=== PATIENT | female | born 1975 | race Caucasian/White ===

== ENCOUNTER → 2016-07-15 | Outpatient (CLI) | payer OTHER, MEDICAID ==
[~2016-07-15] MED LIST: AMBIEN 10MG10 MG PO; BACTRIM DS 8001 TAB PO; CLARITIN 1010 MG/TAB PO; CLEOCIN HC150 MG/CAP PO; DEPO-PROVER150 MG/M1 IM; FLEXERIL 1010 MG/TAB PO; FLEXERIL10 MG PO; INDERAL 20MG20 MG PO; INDERAL LA 80MG80 MG PO; KEPPRA 500MG500 MG PO; LORTAB 5/500 501 TAB PO; LOTENSIN 1010 MG/TAB PO; LOTENSIN20 MG PO; MOTRIN 800800 MG/TAB PO; MOTRIN800 MG PO; NEURONTIN300 MG/CAP PO; NO HOME MEDICATIONS; NORCO 325 MG-51 TAB PO; PENICILLIN250 MG PO; PERCOCET 325 MG1 TA2; PERCOCET 325 MG1 TA2 PO; PERCOCET 325 MG1 TA3 PO; PERCOCET 5/321 UDTAB PO; PREDNISONE20 MG PO; RITALIN10 MG PO; TRAMADOL50 MG PO; TREXIMET 10-601 EACH PO; TREXIMET 500 MG1 TAB PO; ULTRAM 50MG TAB50 MG; ULTRAM 50MG TAB50 MG PO; ULTRAM100 MG PO; VICODIN 5/5001 UDTAB PO; ZOFRAN 4MG T4 MG/TAB PO
== END ==
LOC: BHSO 13:00
DX: F41.1 Generalized anxiety disorder (principal)

== ENCOUNTER → 2016-07-22 | Outpatient (CLI) | payer OTHER, MEDICAID | LOC: BHSO 12:54 | DX: F40.10 Social phobia, unspecified (principal) ==

== ENCOUNTER → 2016-07-29 | Outpatient (CLI) | payer OTHER, MEDICAID | LOC: BHSO 13:04 | DX: F40.10 Social phobia, unspecified (principal) ==

== ENCOUNTER → 2016-08-05 | Outpatient (CLI) | payer OTHER, MEDICAID | LOC: BHSO 13:01 | DX: F41.1 Generalized anxiety disorder (principal) ==

== ENCOUNTER → 2016-08-12 | Outpatient (CLI) | payer OTHER, MEDICAID | LOC: BHSO 13:00 | DX: F41.1 Generalized anxiety disorder (principal) ==

== ENCOUNTER 2016-08-22 13:36 | Emergency (ER) | payer OTHER, MEDICAID ==
[~2016-08-22] VITALS: Ht 177.8 cm; Wt 100.0 kg
[~2016-08-22 13:36] MED LIST changes: -AMBIEN 10MG10 MG PO; -BACTRIM DS 8001 TAB PO; -CLARITIN 1010 MG/TAB PO; -FLEXERIL 1010 MG/TAB PO; -INDERAL LA 80MG80 MG PO; -LOTENSIN 1010 MG/TAB PO; -RITALIN10 MG PO; -TREXIMET 10-601 EACH PO
[2016-08-22 13:41] VITALS: TEMP 98.3
[2016-08-22 15:12] LABS: BASO % 0.3 % (0.0-2.0); EOS # 0.2 (0.0-0.7); EOS % 3.5 % (0-4.0); GRAN # 3.5 (1.4-6.5); GRAN % 59.6 % (42.2-75.2); HEMATOCRIT 35.6 % (37.0-47.0); HEMOGLOBIN 11.9 g/dl (12.5-16.0); LYMPH # 1.8 (1.2-3.4); LYMPH % 30.7 % (20.0-51.0); MEAN CELL VOLUME 83 fl (80.0-100.0); MEAN CORPUSCULAR HEMOGLOBIN 28 pg (27.0-31.0); MEAN CORPUSCULAR HGB CONC 33 g/dl (33.0-37.0); MEAN PLATELET VOLUME 8.9 fl (7.4-10.4); MONO # 0.3 (0.1-0.6); MONO % 5.7 % (1.7-9.3); PLATELET COUNT 173 K/mm3 (130-400); REDCELL DISTRIBUTION WIDTH-CV 13.6 % (11.5-14.5); WHITE BLOOD COUNT 5.8 K/mm3 (4.8-10.8)
[2016-08-22 15:19] LABS: INR 1.1 (0.8-3.0); PROTHROMBIN TIME 11.9 SECONDS (9.7-12.8)
[2016-08-22 15:31] LABS: ADJUSTED CALCIUM 9.6 mg/dL (8.4-10.2); ALANINE AMINOTRANSFERASE 30 U/L (9-52); ALBUMIN 3.8 gm/dL (3.5-5.0); ALKALINE PHOSPHATASE 60 U/L (50-136); ANION GAP 10 mmol/L (7-16); BILIRUBIN,TOTAL 0.7 mg/dL (0.0-1.0); BLOOD UREA NITROGEN 18 mg/dL (7-17); CALCIUM 9.4 mg/dL (8.4-10.2); CARBON DIOXIDE 24 mmol/L (22-30); CHLORIDE 107 mmol/L (98-107); CREATININE, serum 0.94 mg/dL (0.52-1.25); GLUCOSE 91 mg/dL (74-106); POTASSIUM 3.9 mmol/L (3.4-5.0); SODIUM 140 mmol/L (137-145); TOTAL PROTEIN 7.1 gm/dL (6.4-8.2)
[2016-08-22 15:40] LABS: C-REACTIVE PROTEIN < 0.5 mg/dL (0.0-0.9); TROPONIN-I < 0.012 ng/mL (0.000-0.034)
[2016-08-22 16:29] VITALS: BP 124/86; PULSE 87
== END 2016-08-22 16:37 | disposition home or self-care (01) ==
LOC: COL.ER 13:36
PROVIDERS: Family Medicine
DX: R07.89 Other chest pain (principal)

== ENCOUNTER → 2016-08-26 | Outpatient (CLI) | payer OTHER, MEDICAID ==
[~2016-08-26] MED LIST changes: +AMBIEN 10MG10 MG PO; +BACTRIM DS 8001 TAB PO; +CLARITIN 1010 MG/TAB PO; +FLEXERIL 1010 MG/TAB PO; +INDERAL LA 80MG80 MG PO; +LOTENSIN 1010 MG/TAB PO; +RITALIN10 MG PO; +TREXIMET 10-601 EACH PO
== END ==
LOC: BHSO 11:05
DX: F41.1 Generalized anxiety disorder (principal)

== ENCOUNTER → 2016-09-16 | Outpatient (CLI) | payer OTHER, MEDICAID | LOC: BHSO 13:06 | DX: F41.1 Generalized anxiety disorder (principal) ==

== ENCOUNTER 2016-09-22 14:02 | Emergency (ER) | payer OTHER, MEDICAID ==
[~2016-09-22] VITALS: Ht 177.8 cm; Wt 90.9 kg
[~2016-09-22 14:02] MED LIST changes: -AMBIEN 10MG10 MG PO; -BACTRIM DS 8001 TAB PO; -CLARITIN 1010 MG/TAB PO; -FLEXERIL 1010 MG/TAB PO; -INDERAL LA 80MG80 MG PO; -LOTENSIN 1010 MG/TAB PO; -RITALIN10 MG PO; -TREXIMET 10-601 EACH PO
[2016-09-22 14:04] VITALS: PULSE 99; TEMP 99.1
[2016-09-22] MEDS ORDERED: AMBIEN 10MG10 MG PO (14:08)
[2016-09-22 15:08] LABS: BASO % 0.2 % (0.0-2.0); EOS # 0.2 (0.0-0.7); EOS % 2.8 % (0-4.0); GRAN # 3.5 (1.4-6.5); GRAN % 61.6 % (42.2-75.2); HEMATOCRIT 35.4 % (37.0-47.0); HEMOGLOBIN 12.1 g/dl (12.5-16.0); LYMPH # 1.7 (1.2-3.4); LYMPH % 29.6 % (20.0-51.0); MEAN CELL VOLUME 82 fl (80.0-100.0); MEAN CORPUSCULAR HEMOGLOBIN 28 pg (27.0-31.0); MEAN CORPUSCULAR HGB CONC 34 g/dl (33.0-37.0); MONO # 0.3 (0.1-0.6); MONO % 5.6 % (1.7-9.3); PLATELET COUNT 169 K/mm3 (130-400); RED BLOOD COUNT 4.34 M/mm3 (4.10-5.30); WHITE BLOOD COUNT 5.7 K/mm3 (4.8-10.8)
[2016-09-22 15:20] LABS: ADJUSTED CALCIUM 9.3 mg/dL (8.4-10.2); ALBUMIN 3.5 gm/dL (3.5-5.0); BILIRUBIN,TOTAL 0.7 mg/dL (0.0-1.0); CALCIUM 8.9 mg/dL (8.4-10.2); CREATININE, serum 0.81 mg/dL (0.52-1.25); POTASSIUM 3.7 mmol/L (3.4-5.0); TOTAL PROTEIN 6.9 gm/dL (6.4-8.2)
[2016-09-22 15:51] LABS: PH 5 (5-8); URINE APPEARANCE Cloudy; URINE BACTERIA None Seen /hpf; URINE BILIRUBIN Negative (NEGATIVE); URINE BLOOD Negative (NEGATIVE); URINE COLOR Amber; URINE GLUCOSE Negative (NEGATIVE); URINE KETONE Negative (NEGATIVE); URINE RBC 20-50 /hpf; URINE UROBILINOGEN Negative (NEGATIVE); URINE WBC >50 /hpf
[2016-09-22] MEDS ORDERED: BACTRIM DS 8001 TAB PO (15:58)
[2016-09-22 16:27] VITALS: BP 145/96
== END 2016-09-22 16:55 | disposition home or self-care (01) ==
LOC: COL.ER 14:02
PROVIDERS: Family Medicine
DX: N39.0 Urinary tract infection, site not specified (principal); B96.1 Klebsiella pneumoniae [K. pneumoniae] as the cause of diseases classified elsewhere; I10 Essential (primary) hypertension; R19.7 Diarrhea, unspecified
CPT/HCPCS: J0696; J2405; J7030

== ENCOUNTER → 2016-09-23 | Outpatient (CLI) | payer OTHER, MEDICAID ==
[~2016-09-23] MED LIST changes: +AMBIEN 10MG10 MG PO; +BACTRIM DS 8001 TAB PO; +CLARITIN 1010 MG/TAB PO; +FLEXERIL 1010 MG/TAB PO; +INDERAL LA 80MG80 MG PO; +LOTENSIN 1010 MG/TAB PO; +RITALIN10 MG PO; +TREXIMET 10-601 EACH PO
== END ==
LOC: BHSO 10:06
DX: F41.1 Generalized anxiety disorder (principal)

== ENCOUNTER → 2016-10-07 | Outpatient (CLI) | payer OTHER, MEDICAID | LOC: BHSO 13:03 | DX: F40.10 Social phobia, unspecified (principal) ==

== ENCOUNTER 2016-10-09 16:44 | Emergency (ER) | payer OTHER, MEDICAID ==
[~2016-10-09] VITALS: Ht 177.8 cm; Wt 90.9 kg
[~2016-10-09 16:44] MED LIST changes: -CLARITIN 1010 MG/TAB PO; -FLEXERIL 1010 MG/TAB PO; -INDERAL LA 80MG80 MG PO; -LOTENSIN 1010 MG/TAB PO; -RITALIN10 MG PO; -TREXIMET 10-601 EACH PO
[2016-10-09 16:52] VITALS: TEMP 98.8
[2016-10-09] MEDS ORDERED: FLEXERIL 1010 MG/TAB PO (17:39)
[2016-10-09 17:52] VITALS: BP 126/64; PULSE 84
== END 2016-10-09 17:52 | disposition home or self-care (01) ==
LOC: COL.ER 16:44
DX: S29.012A Strain of muscle and tendon of back wall of thorax, initial encounter (principal); X50.0XXA Overexertion from strenuous movement or load, initial encounter; Y93.E6 Activity, residential relocation

== ENCOUNTER → 2016-10-14 | Outpatient (CLI) | payer OTHER, MEDICAID ==
[~2016-10-14] MED LIST changes: +CLARITIN 1010 MG/TAB PO; +FLEXERIL 1010 MG/TAB PO; +INDERAL LA 80MG80 MG PO; +LOTENSIN 1010 MG/TAB PO; +RITALIN10 MG PO; +TREXIMET 10-601 EACH PO
== END ==
LOC: BHSO 11:05
DX: F41.1 Generalized anxiety disorder (principal)

== ENCOUNTER → 2016-10-21 | Outpatient (CLI) | payer OTHER, MEDICAID | LOC: BHSO 10:08 | DX: F40.10 Social phobia, unspecified (principal) ==

== ENCOUNTER → 2016-10-28 | Outpatient (CLI) | payer OTHER, MEDICAID | LOC: BHSO 09:03 | DX: F40.10 Social phobia, unspecified (principal) ==

== ENCOUNTER → 2016-11-24 | Outpatient (CLI) | payer OTHER, MEDICAID | LOC: BHSO 16:01 | DX: F40.10 Social phobia, unspecified (principal) ==

== ENCOUNTER → 2016-12-06 | Outpatient (CLI) | payer OTHER, MEDICAID | LOC: BHSO 15:59 | DX: F41.1 Generalized anxiety disorder (principal) ==

== ENCOUNTER → 2016-12-27 | Outpatient (CLI) | payer OTHER, MEDICAID | LOC: BHSO 16:07 | DX: F40.10 Social phobia, unspecified (principal) ==

== ENCOUNTER → 2017-01-18 | Outpatient (CLI) | payer OTHER, MEDICAID | LOC: BHSO 16:05 | DX: F40.10 Social phobia, unspecified (principal) ==

== ENCOUNTER 2017-02-27 22:15 | Emergency (ER) | payer OTHER, MEDICAID ==
[~2017-02-27] VITALS: Ht 177.8 cm; Wt 90.9 kg
[~2017-02-27 22:15] MED LIST changes: -CLARITIN 1010 MG/TAB PO; -INDERAL LA 80MG80 MG PO; -LOTENSIN 1010 MG/TAB PO; -RITALIN10 MG PO; -TREXIMET 10-601 EACH PO
[2017-02-27 22:26] VITALS: TEMP 99.2
[2017-02-27] MEDS ORDERED: LOTENSIN 1010 MG/TAB PO (22:33)
[2017-02-27] MEDS ORDERED: INDERAL LA 80MG80 MG PO (22:33)
[2017-02-27] MEDS ORDERED: AMBIEN 10MG10 MG PO (22:33)
[2017-02-27] MEDS ORDERED: CLARITIN 1010 MG/TAB PO (22:34)
[2017-02-27] MEDS ORDERED: RITALIN10 MG PO (22:35)
[2017-02-27] MEDS ORDERED: TREXIMET 10-601 EACH PO (22:36)
[2017-02-27 23:33] LABS: BASO % 0.5 % (0.0-2.0); EOS # 0.6 (0.0-0.7); EOS % 7.3 % (0-4.0); GRAN # 4.6 (1.4-6.5); GRAN % 58.6 % (42.2-75.2); HEMATOCRIT 37.3 % (37.0-47.0); HEMOGLOBIN 13.1 g/dl (12.5-16.0); LYMPH % 26.2 % (20.0-51.0); MEAN CELL VOLUME 80 fl (80.0-100.0); MEAN CORPUSCULAR HEMOGLOBIN 28 pg (27.0-31.0); MEAN CORPUSCULAR HGB CONC 35 g/dl (33.0-37.0); MEAN PLATELET VOLUME 8.8 fl (7.4-10.4); MONO # 0.6 (0.1-0.6); MONO % 7.1 % (1.7-9.3); PLATELET COUNT 259 K/mm3 (130-400); RED BLOOD COUNT 4.69 M/mm3 (4.10-5.30); REDCELL DISTRIBUTION WIDTH-CV 13.6 % (11.5-14.5); WHITE BLOOD COUNT 7.8 K/mm3 (4.8-10.8)
[2017-02-27 23:40] VITALS: BP 125/82
[2017-02-27 23:43] LABS: ADJUSTED CALCIUM 9.2 mg/dL (8.4-10.2); ALBUMIN 4.3 gm/dL (3.5-5.0); BILIRUBIN,TOTAL 0.6 mg/dL (0.0-1.0); CALCIUM 9.4 mg/dL (8.4-10.2); CREATININE, serum 0.91 mg/dL (0.52-1.25); POTASSIUM 3.2 mmol/L (3.4-5.0); TOTAL PROTEIN 7.7 gm/dL (6.4-8.2)
[2017-02-28 00:02] LABS: PH 6 (5-8); URINE APPEARANCE Clear; URINE BACTERIA Rare /hpf; URINE BILIRUBIN Negative (NEGATIVE); URINE BLOOD Negative (NEGATIVE); URINE COLOR Yellow; URINE GLUCOSE Negative (NEGATIVE); URINE KETONE Trace (NEGATIVE); URINE RBC 0-2 /hpf; URINE UROBILINOGEN Negative (NEGATIVE)
[2017-02-28 00:40] VITALS: PULSE 86
== END 2017-02-28 00:40 | disposition home or self-care (01) ==
LOC: COL.ER 22:15
PROVIDERS: Emergency Medicine
DX: R42 Dizziness and giddiness (principal); R19.7 Diarrhea, unspecified; I10 Essential (primary) hypertension; G43.909 Migraine, unspecified, not intractable, without status migrainosus; G89.29 Other chronic pain; F17.210 Nicotine dependence, cigarettes, uncomplicated; Z90.89 Acquired absence of other organs; Z98.890 Other specified postprocedural states
CPT/HCPCS: J7030

== ENCOUNTER → 2017-03-15 | Outpatient (CLI) | payer OTHER, MEDICAID ==
[~2017-03-15] MED LIST changes: +CLARITIN 1010 MG/TAB PO; +ELIMITE TOP; +INDERAL LA 80MG80 MG PO; +LOTENSIN 1010 MG/TAB PO; +PHENERGAN 25 TA25 MG PO; +RELPAX20 MG PO; +RITALIN10 MG PO; +TREXIMET 10-601 EACH PO
== END ==
LOC: BHSO 15:05
DX: F40.10 Social phobia, unspecified (principal)

== ENCOUNTER → 2017-04-14 | Outpatient (CLI) | payer OTHER, MEDICAID ==
[~2017-04-14] MED LIST changes: -ELIMITE TOP; -PHENERGAN 25 TA25 MG PO; -RELPAX20 MG PO
== END ==
LOC: BHSO 15:08
DX: F40.10 Social phobia, unspecified (principal)

== ENCOUNTER → 2017-04-20 | Outpatient (CLI) | payer OTHER, MEDICAID | LOC: BHSO 15:10 | DX: F40.10 Social phobia, unspecified (principal) ==

== ENCOUNTER → 2017-05-25 | Outpatient (CLI) | payer OTHER, MEDICAID | LOC: BHSO 15:11 | DX: F41.1 Generalized anxiety disorder (principal) ==

== ENCOUNTER → 2017-07-05 | Outpatient (CLI) | payer OTHER, MEDICAID | LOC: BHSO 15:07 | DX: F40.10 Social phobia, unspecified (principal) ==

== ENCOUNTER → 2017-08-10 | Outpatient (CLI) | payer OTHER, MEDICAID | LOC: BHSO 15:52 | DX: F40.10 Social phobia, unspecified (principal) ==

== ENCOUNTER → 2017-08-24 | Outpatient (CLI) | payer OTHER, MEDICAID | LOC: BHSO 16:03 | DX: F41.1 Generalized anxiety disorder (principal) ==

== ENCOUNTER → 2017-08-31 | Outpatient (CLI) | payer OTHER, MEDICAID | LOC: BHSO 16:14 | DX: F40.10 Social phobia, unspecified (principal) ==

== ENCOUNTER → 2018-02-23 | Outpatient (CLI) | payer OTHER, MEDICAID | LOC: BHSO 14:05 | DX: F40.10 Social phobia, unspecified (principal) ==

== ENCOUNTER → 2018-03-08 | Outpatient (CLI) | payer OTHER, MEDICAID | LOC: BHSO 13:01 | DX: F40.10 Social phobia, unspecified (principal) ==

== ENCOUNTER → 2018-03-15 | Outpatient (CLI) | payer OTHER, MEDICAID | LOC: BHSO 14:05 | DX: F40.10 Social phobia, unspecified (principal) ==

== ENCOUNTER → 2018-03-27 | Outpatient (CLI) | payer OTHER, MEDICAID | LOC: BHSO 15:06 | DX: F40.10 Social phobia, unspecified (principal) ==

== ENCOUNTER → 2018-04-11 | Outpatient (CLI) | payer OTHER, MEDICAID | LOC: BHSO 09:08 | DX: F40.10 Social phobia, unspecified (principal) ==

== ENCOUNTER → 2018-04-16 | Outpatient (CLI) | payer OTHER, MEDICAID | LOC: BHSO 09:07 | DX: F40.10 Social phobia, unspecified (principal) ==

== ENCOUNTER → 2018-05-01 | Outpatient (CLI) | payer OTHER, MEDICAID | LOC: BHSO 15:00 | DX: F40.10 Social phobia, unspecified (principal) ==

== ENCOUNTER 2018-08-18 09:23 | Emergency (ER) | payer MEDICAID ==
[~2018-08-18] VITALS: Ht 177.8 cm; Wt 100.0 kg
[2018-08-18 09:27] VITALS: TEMP 99.3
[2018-08-18] MEDS ORDERED: RELPAX20 MG PO (10:27)
[2018-08-18] MEDS ORDERED: ULTRAM 50MG TAB50 MG PO (10:28)
[2018-08-18] MEDS ORDERED: CLEOCIN HC150 MG/CAP PO (12:16)
[2018-08-18] MEDS ORDERED: PHENERGAN 25 TA25 MG PO (12:17)
[2018-08-18 13:41] VITALS: BP 145/91; PULSE 84
== END 2018-08-18 13:42 | disposition home or self-care (01) ==
LOC: COL.ER 09:23
DX: K12.2 Cellulitis and abscess of mouth (principal); Z79.891 Long term (current) use of opiate analgesic
CPT/HCPCS: J1170; J2405

== ENCOUNTER → 2018-09-17 | Outpatient (CLI) | payer MEDICAID ==
[~2018-09-17] MED LIST changes: +PHENERGAN 25 TA25 MG PO; +RELPAX20 MG PO
== END ==
LOC: BHSO 10:07
DX: F40.10 Social phobia, unspecified (principal)

== ENCOUNTER 2019-02-16 07:48 | Emergency (ER) | payer MEDICAID ==
[~2019-02-16] VITALS: Ht 175.3 cm; Wt 100.0 kg
[2019-02-16 07:57] VITALS: TEMP 99
[2019-02-16] MEDS ORDERED: ELIMITE TOP (08:27)
[2019-02-16 08:49] VITALS: BP 132/86; PULSE 92
== END 2019-02-16 08:50 | disposition home or self-care (01) ==
LOC: COL.ER 07:48
DX: B86 Scabies (principal); I10 Essential (primary) hypertension; G43.909 Migraine, unspecified, not intractable, without status migrainosus; F98.8 Other specified behavioral and emotional disorders with onset usually occurring in childhood and adolescence; F17.210 Nicotine dependence, cigarettes, uncomplicated; Z90.89 Acquired absence of other organs

== ENCOUNTER 2019-03-18 17:10 | Emergency (ER) | payer MEDICAID ==
[~2019-03-18] VITALS: Ht 175.3 cm; Wt 95.5 kg
[~2019-03-18 17:10] MED LIST changes: +ELIMITE TOP
[2019-03-18 17:25] VITALS: BP 145/91; TEMP 98.3
[2019-03-18 18:59] VITALS: PULSE 72
== END 2019-03-18 18:58 | disposition home or self-care (01) ==
LOC: COL.ER 17:10
DX: R19.7 Diarrhea, unspecified (principal); F17.210 Nicotine dependence, cigarettes, uncomplicated; G43.909 Migraine, unspecified, not intractable, without status migrainosus; Z90.49 Acquired absence of other specified parts of digestive tract

== ENCOUNTER 2019-07-15 10:46 | Emergency (ER) | payer MEDICAID ==
[~2019-07-15] VITALS: Ht 177.8 cm; Wt 104.5 kg
[2019-07-15 11:08] VITALS: BP 154/94; TEMP 98.9
[2019-07-15 14:42] VITALS: PULSE 83
== END 2019-07-15 14:42 | disposition home or self-care (01) ==
LOC: COL.ER 10:46
DX: S69.92XA Unspecified injury of left wrist, hand and finger(s), initial encounter (principal); V00.831A Fall from motorized mobility scooter, initial encounter; Y92.009 Unspecified place in unspecified non-institutional (private) residence as the place of occurrence of the external cause

== ENCOUNTER 2020-09-13 22:38 | Emergency (ER) | payer MEDICAID ==
[~2020-09-13] VITALS: Ht 177.8 cm; Wt 113.6 kg
[2020-09-13 22:48] VITALS: TEMP 98.9
[2020-09-13] MEDS ORDERED: CLEOCIN HCL300 MG PO (23:27)
[2020-09-13 23:42] VITALS: BP 147/91; PULSE 78
== END 2020-09-13 23:52 | disposition home or self-care (01) ==
LOC: COL.ER 22:38
DX: K04.7 Periapical abscess without sinus (principal); F11.23 Opioid dependence with withdrawal; F17.210 Nicotine dependence, cigarettes, uncomplicated

== ENCOUNTER → 2020-10-09 | Outpatient (CLI) | payer MEDICAID ==
[~2020-10-09] MED LIST changes: +CLEOCIN HCL300 MG PO
== END ==
LOC: COL.RAD 14:05
DX: J34.89 Other specified disorders of nose and nasal sinuses (principal); K05.6 Periodontal disease, unspecified; R09.81 Nasal congestion

== ENCOUNTER 2023-09-04 19:27 | Emergency (ER) | payer MEDICAID ==
[~2023-09-04] VITALS: Ht 175.3 cm; Wt 104.1 kg
[2023-09-04 19:32] VITALS: TEMP 97.9
[2023-09-04] MEDS ORDERED: Lidocaine 4% Topical Patch TP ONE (20:15)
[2023-09-04] MEDS ORDERED: Ketorolac 30 MG/ML VIAL IM ONE (20:15)
[2023-09-04] MEDS ORDERED: FLEXERIL 1010 MG/TAB PO (20:48)
[2023-09-04] MEDS ORDERED: ASPERCREME1 EACH TP (20:48)
[2023-09-04] MEDS ORDERED: TORADOL 10MG TA10 MG PO (20:48)
[2023-09-04] MEDS ORDERED: PREDNISONE20 MG PO (20:49)
[2023-09-04 21:03] VITALS: BP 140/99; PULSE 66
== END 2023-09-04 21:03 | disposition home or self-care (01) ==
LOC: COL.ER 19:27
DX: M51.36 Other intervertebral disc degeneration, lumbar region (principal); Z79.899 Other long term (current) drug therapy
CPT/HCPCS: J1885; J2360

== ENCOUNTER 2023-10-21 12:36 | Emergency (ER) | payer MEDICAID ==
[~2023-10-21] VITALS: Ht 175.3 cm; Wt 104.1 kg
[~2023-10-21 12:36] MED LIST changes: +ASPERCREME1 EACH TP; +Pregabalin 75 MG CAP PO SCH; +TORADOL 10MG TA10 MG PO
[2023-10-21 12:44] VITALS: TEMP 98
[2023-10-21] MEDS ORDERED: Pregabalin 50 MG CAP PO ONE (13:15)
[2023-10-21] MEDS ORDERED: Pregabalin 75 MG CAP PO ONE (13:30)
[2023-10-21 13:44] VITALS: BP 141/90; PULSE 86
== END 2023-10-21 13:48 | disposition home or self-care (01) ==
LOC: COL.ER 12:36
DX: Z76.0 Encounter for issue of repeat prescription (principal)

== ENCOUNTER 2024-05-03 01:29 | Emergency (ER) | payer MEDICAID ==
[~2024-05-03] VITALS: Ht 175.3 cm; Wt 108.6 kg
[~2024-05-03 01:29] MED LIST changes: -Pregabalin 75 MG CAP PO SCH
[2024-05-03 01:40] VITALS: BP 179/111; TEMP 98
[2024-05-03] MEDS ORDERED: Home HYDROcodone/Acetaminophen 5/325 MG #4 TABS/PACK PO ONE (02:15)
[2024-05-03 02:25] VITALS: PULSE 101
== END 2024-05-03 02:24 | disposition home or self-care (01) ==
LOC: COL.ER 01:29
DX: S99.921A Unspecified injury of right foot, initial encounter (principal); W22.8XXA Striking against or struck by other objects, initial encounter